=== PATIENT | male | born 1990 | race Caucasian/White ===

== ENCOUNTER 2019-03-18 10:17 | Emergency (ER) | payer MEDICAID ==
[~2019-03-18] VITALS: Ht 162.6 cm; Wt 103.4 kg
[2019-03-18 10:36] VITALS: Ht 162.6 cm; Wt 103.4 kg
[2019-03-18 12:42] VITALS: BP 135/79
== END 2019-03-18 12:42 | disposition home or self-care (01) ==
LOC: ED 10:17
DX: B34.9 Viral infection, unspecified (principal)
CPT/HCPCS: 87804